=== PATIENT | male | born 1985 | race American Indian/Alaskan Native ===

== ENCOUNTER 2018-07-10 12:32 | Emergency (ER) | payer OTHER ==
[2018-07-10 13:11] VITALS: BP 119/59
--- NOTE | 2018-07-10 13:14 | Emergency Department Report ---
Blank Doc - Documentation Documentation: 33 y o male hx of schizophrenia presents to Ed for a haldol shot stating he is a day late takes no other meds denies SI/HI/AH/VH
--- NOTE | 2018-07-10 14:19 | Emergency Department Report ---
ED General Adult HPI - General Chief complaint: Medical Clearance Stated complaint: PSYCH MEDICATION Time Seen by Provider: 07/10/18 13:06 Source: patient, RN notes reviewed Mode of arrival: Ambulatory Limitations: No Limitations - History of Present Illness Initial comments: This is a 33-year-old gentleman. The patient is not known to this provider pr eviously. The patient reportedly has a history of psychiatric disease, and reportedly was receiving haloperidol maintenance injections in another hospital, in [place]. His last injection was approximately 30-31 days ago. The patient cannot recall which formulation of haloperidol he was receiving. He cannot recall which dose he was receiving. He presents to the emergency room today with complaints of request for routine haloperidol administration. He denies headache, neck pain, chest pain, abdominal pain, shortness of breath, urinary symptoms. He denies homicidality and suicidality. He has no other complaints. -: Sudden Improves with: none Worsens with: none Associated Symptoms: denies other symptoms - Related Data Allergies Allergy/AdvReac Type Severity Reaction Status Date / Time No Known Allergies Allergy Unverified 07/10/18 12:42 ED Review of Systems ROS: Stated complaint: PSYCH MEDICATION Other details as noted in HPI Constitutional: denies: fever Eyes: denies: eye discharge ENT: denies: epistaxis Respiratory: denies: cough Cardiovascular: denies: chest pain Gastrointestinal: denies: abdominal pain Musculoskeletal: denies: back pain Neurological: denies: headache Psychiatric: denies: auditory hallucinations, visual hallucinations, homicidal thoughts, suicidal thoughts ED Past Medical Hx - Past Medical History Hx Psychiatric Treatment: Yes (schizophrenia) - Surgical History Past Surgical History?: No - Social History Smoking Status: Never Smoker Substance Use Type: None ED Physical Exam - General Limitations: No Limitations General appearance: alert, in no apparent distress - Head Head exam: Present: atraumatic, normocephalic - Eye Eye exam: Present: normal appearance, EOMI. Absent: nystagmus - ENT ENT exam: Present: normal exam, normal orophraynx, mucous membranes moist, normal external ear exam - Neck Neck exam: Present: normal inspection, full ROM. Absent: tenderness, meningismus - Respiratory Respiratory exam: Present: normal lung sounds bilaterally. Absent: respiratory distress - Cardiovascular Cardiovascular Exam: Present: regular rate, normal rhythm, normal heart sounds. Absent: bradycardia, tachycardia, irregular rhythm, systolic murmur, diastolic murmur, rubs, gallop - GI/Abdominal GI/Abdominal exam: Present: soft. Absent: distended, tenderness, guarding, rebound, rigid, pulsatile mass - Rectal Rectal exam: Present: deferred - Extremities Exam Extremities exam: Present: normal inspection, full ROM, other (2+ pulses noted in the bilateral upper extremities. Moving 4 extremities spontaneously without difficulty.) - Back Exam Back exam: Present: normal inspection, full ROM. Absent: tenderness, CVA tenderness (R), CVA tenderness (L), vertebral tenderness - Neurological Exam Neurological exam: Present: alert, oriented X3, normal gait, other (Extraocular movements intact. Tongue midline. No facial droop. Facial sensation intact to light touch in the V1, V2, V3 distribution bilaterally. 5 and 5 strength in 4 extremities.. Sensation is intact to light touch in 4 extremities.). Absent: motor sensory deficit - Psychiatric Psychiatric exam: Absent: homicidal ideation, suicidal ideation - Skin Skin exam: Present: warm, dry, intact, normal color. Absent: rash ED Course Vital Signs 07/10/18 13:06 Temperature 97.9 F Pulse Rate 67 Respiratory 18 Rate Blood Pressure 119/59 O2 Sat by Pulse 99 Oximetry ED Medical Decision Making - Lab Data Vital Signs 07/10/18 13:06 Temperature 97.9 F Pulse Rate 67 Respiratory 18 Rate Blood Pressure 119/59 O2 Sat by Pulse 99 Oximetry - Medical Decision Making Differential diagnosis, including not limited to: General medical evaluation, general checkup Request for routine outpatient haloperidol administration Assessment and plan: 33-year-old gentleman with request for haloperidol injection. He does not know what formulation he takes. He does not know what dose he takes. He is not homicidal or suicidal. He exhibits decision-making capacity. He has not endorsed any acute psychiatric complaints at this time. He does not meet 1013 criteria. He has endorsed no medical complaints. Explained to the patient that without corroborating medical records, and knowledge of underlying dose and formulation, we will not be able to administer his medication. However, the patient was given a list of referrals to outpatient resources, for outpatient primary care, and psychiatry, for which to follow-up. Critical care attestation.: If time is entered above; I have spent that time in minutes in the direct care of this critically ill patient, excluding procedure time. ED Disposition Clinical Impression: General medical exam Disposition: TO HOME OR SELFCARE Is pt being admited?: No Does the pt Need Aspirin: No Condition: Stable Additional Instructions: The patient may follow up with any of the listed outpatient psychiatric facilities, or at the local mental health department, or with an outpatient psychiatrist for further care. The patient should return to the emergency room right away with new, worsening or different symptoms, or symptoms not present on the initial ER evaluation. [facility] [address] [facility] [facility] in [place], [place] Address: [address], [place] [address] Hours: Open 24 hours Suggest an edit [facility] [address] [facility] in the [place], [place] Address: [address] [place] [id number] Hours: Open [address] [facility] 2.[address] [facility] in [place], [place] Address: [address] [facility], [place] [address] Hours: Open 24 hours Referrals: [facility] [Provider Group] - 3-5 Days [facility] [Outside] - 3-5 Days [facility] [Outside] - 3-5 Days
== END 2018-07-10 15:04 | disposition home or self-care (01) ==
LOC: ED 12:32
DX: Z00.8 Encounter for other general examination (principal)
CPT/HCPCS: 99281

== ENCOUNTER 2018-07-23 16:41 | Emergency (ER) | payer SELFPAY ==
--- NOTE | 2018-07-23 17:10 | Event Note ---
ED Screening Note ED Screening Note: schizo rx haldol-- once per month KT William POS SI no plan no HI previous attempt no drugs no etoh cig no thc This initial assessment/diagnostic orders/clinical plan/treatment(s) is/are subject to change based on patients health status, clinical progression and re- assessment by fellow clinical providers in the ED. Further treatment and workup at subsequent clinical providers discretion. Patient/guardian urged not to elope from the ED as their condition may be serious if not clinically assessed and managed. Initial orders include: medical clearance ORIANA mart
[2018-07-23 18:39] LABS: Basophils # (Auto) 0.1 K/mm3 (0.0-0.1); Basophils % (Auto) 1.5 % (0.0-1.8); Eosinophils # (Auto) 0.1 K/mm3 (0.0-0.4); Eosinophils % (Auto) 1.6 % (0.0-4.3); Hematocrit 40.5 % (35.5-45.6); Hemoglobin 14.2 gm/dl (11.8-15.2); Lymphocytes # (Auto) 1.9 K/mm3 (1.2-5.4); Lymphocytes % (Auto) 44.8 % (13.4-35.0); Mean Corpuscular HGB Conc 35 % (32-34); Mean Corpuscular Volume 90 fl (84-94); Monocytes # (Auto) 0.3 K/mm3 (0.0-0.8); Monocytes % (Auto) 8.1 % (0.0-7.3); Platelet Count 117 K/mm3 (140-440); Red Blood Count 4.53 M/mm3 (3.65-5.03); Red Cell Distribution Width 13.8 % (13.2-15.2)
[2018-07-23 19:01] LABS: Alanine Aminotransferase 11 units/L (7-56); Albumin 3.8 g/dL (3.9-5); BUN/Creatinine Ratio 5; Blood Urea Nitrogen 6 mg/dL (9-20); Calcium 8.7 mg/dL (8.4-10.2); Hemolysis Index 9
[2018-07-23 19:13] LABS: Bilirubin,Urine NEG (Negative); Blood,Urine NEG (Negative); Color,Urine Straw (Yellow); Protein,Urine <15 mg/dL mg/dL (Negative); Urobilinogen,Urine < 2.0 mg/dL (<2.0); WBC,Urine < 1.0 /HPF (0.0-6.0)
[2018-07-23 19:14] LABS: RBC,Urine < 1.0 /HPF (0.0-6.0)
--- NOTE | 2018-07-23 19:16 | Emergency Department Report ---
ED Psych HPI - General Chief Complaint: Psych Stated Complaint: SUICIDAL Time Seen by Provider: 07/23/18 17:06 Source: patient Mode of arrival: Ambulatory - History of Present Illness Initial Comments: Mr. Gutierrez is a 33-year-old male with history of schizophrenia and depress ion who presents with suicidal ideation. He has a plan to jump off a bridge. 10 years ago he had a previous suicide attempt. He attempted to hang himself at that time. He has been severely depressed since the passing of his grandmother 2 years ago. He states that he has a lot of situations on his mind. He lives with his girlfriend. Otherwise he has limited social support. He was recently evaluated at [facility] for mental health concerns. He currently takes Haldol. He is unable to recall the name of his psychiatrist. MD Complaint: suicidal ideation, feels depressed -: Gradual, year(s) (2) Associated Psychiatric Symptoms: depression, suicidal ideation History of same: Yes Quality: constant Improves With: none Worsens With: none Associated Symptoms: denies other symptoms Treatments Prior to Arrival: none If Self Harm: has plan - Related Data Allergies Allergy/AdvReac Type Severity Reaction Status Date / Time No Known Allergies Allergy Unverified 07/10/18 12:42 ED Review of Systems ROS: Stated complaint: SUICIDAL Other details as noted in HPI Comment: All other systems reviewed and negative Constitutional: denies: fever, malaise Respiratory: denies: cough Cardiovascular: denies: chest pain ED Past Medical Hx - Past Medical History Previous Medical History?: Yes Hx Hypertension: No Hx CVA: No Hx Heart Attack/AMI: No Hx Congestive Heart Failure: No Hx Diabetes: No Hx Deep Vein Thrombosis: No Hx Pulmonary Embolism: No Hx GERD: No Hx Liver Disease: No Hx Renal Disease: No Hx of Cancer: No Hx Sickle Cell Disease: No Hx Arthritis: No Hx Headaches / Migraines: No Hx Seizures: No Hx Kidney Stones: No Hx Psychiatric Treatment: Yes (schizophrenia) Hx Asthma: No Hx COPD: No Hx Tuberculosis: No Hx Dementia: No Hx HIV: No - Surgical History Past Surgical History?: No Hx Coronary Stent: No Hx Open Heart Surgery: No Hx Pacemaker: No Hx Internal Defibrillator: No Hx Cholecystectomy: No Hx Appendectomy: No Hx Breast Surgery: No - Social History Smoking Status: Never Smoker Substance Use Type: None ED Physical Exam - General Limitations: No Limitations General appearance: alert, in no apparent distress - Head Head exam: Present: atraumatic, normocephalic - Eye Eye exam: Present: normal appearance - ENT ENT exam: Present: mucous membranes moist - Neck Neck exam: Present: normal inspection, full ROM - Respiratory Respiratory exam: Present: normal lung sounds bilaterally. Absent: respiratory distress, wheezes, rales, rhonchi - Cardiovascular Cardiovascular Exam: Present: regular rate, normal rhythm, normal heart sounds. Absent: bradycardia, tachycardia, systolic murmur, diastolic murmur, rubs, gallop - GI/Abdominal GI/Abdominal exam: Present: soft, normal bowel sounds. Absent: distended, tenderness, guarding, rebound - Rectal Rectal exam: Present: deferred - Extremities Exam Extremities exam: Present: normal inspection - Back Exam Back exam: Present: normal inspection - Neurological Exam Neurological exam: Present: alert, oriented X3 - Psychiatric Psychiatric exam: Present: normal affect, normal mood, suicidal ideation - Skin Skin exam: Present: warm, dry, intact, normal color. Absent: rash ED Course Vital Signs 07/23/18 16:44 Temperature 98.1 F Pulse Rate 90 Respiratory 18 Rate Blood Pressure 116/61 Blood Pressure 116/61 [Right] O2 Sat by Pulse 98 Oximetry ED Medical Decision Making - Lab Data Result diagrams: 07/23/18 18:26 07/23/18 18:26 Laboratory Results - last 24 hr 07/23/18 07/23/18 07/23/18 18:26 18:26 18:26 WBC 4.2 L RBC 4.53 Hgb 14.2 Hct 40.5 MCV 90 MCH 31 MCHC 35 H RDW 13.8 Plt Count 117 L Lymph % (Auto) 44.8 H [place] % (Auto) 8.1 H Eos % (Auto) 1.6 Baso % (Auto) 1.5 Lymph # 1.9 [place] # 0.3 Eos # 0.1 Baso # 0.1 Seg Neutrophils % 44.0 Seg Neutrophils # 1.8 Sodium 138 Potassium 3.2 L Chloride 98.9 Carbon Dioxide 25 Anion Gap 17 BUN 6 L Creatinine 1.2 Estimated GFR > 60 BUN/Creatinine Ratio 5 Glucose 87 Calcium 8.7 Total Bilirubin 0.60 AST 14 ALT 11 Alkaline Phosphatase 85 Total Protein 6.6 Albumin 3.8 L Albumin/Globulin Ratio 1.4 Urine Color Urine Turbidity Urine pH Ur Specific Garland Urine Protein Urine Glucose (UA) Urine Ketones Urine Blood Urine Nitrite Urine Bilirubin Urine Urobilinogen Ur Leukocyte Esterase Urine WBC (Auto) Urine RBC (Auto) U Epithel Cells (Auto) Plasma/Serum Alcohol < 0.01 07/23/18 19:03 WBC RBC Hgb Hct MCV MCH MCHC RDW Plt Count Lymph % (Auto) Camb[place] % (Auto) Eos % (Auto) Baso % (Auto) Lymph # Cambria # Eos # Baso # Seg Neutrophils % Seg Neutrophils # Sodium Potassium Chloride Carbon Dioxide Anion Gap BUN Creatinine Estimated GFR BUN/Creatinine Ratio Glucose Calcium Total Bilirubin AST ALT Alkaline Phosphatase Total Protein Albumin Albumin/Globulin Ratio Urine Color Straw Urine Turbidity Clear Urine pH 7.0 Ur Specific Garland 1.004 Urine Protein <15 mg/dl Urine Glucose (UA) Neg Urine Ketones Neg Urine Blood Neg Urine Nitrite Neg Urine Bilirubin Neg Urine Urobilinogen < 2.0 Ur Leukocyte Esterase Neg Urine WBC (Auto) < 1.0 Urine RBC (Auto) < 1.0 U Epithel Cells (Auto) < 1.0 Plasma/Serum Alcohol - Medical Decision Making Dr. Gutierrez presents with depression suicidal ideation and plan to jump off bridge. He has previous history of suicide attempt. I have placed Mr. Knapp on 1013 involuntary hold for suicidal ideation with plan. I feel the patient is at high risk for self-harm considering previous history and poor social support. Awaiting evaluation by mental health brick shader. Awaiting further treatment and possible placement by psychiatric team. At this time Mr. Knapp is medically clear for psychiatric care. He has been cooperative and calm. Critical care attestation.: If time is entered above; I have spent that time in minutes in the direct care of this critically ill patient, excluding procedure time. ED Disposition Clinical Impression: Suicidal ideation, Acute depression, Schizophrenia Disposition: [id number] ANOTHER TYPE HLTHCARE Is pt being admited?: No Does the pt Need Aspirin: No Condition: Stable
[2018-07-23 19:19] LABS: Amphetamine Screen,Urine PRESUMPTIVE NEGATIVE; Benzodiazepines Screen,Urine PRESUMPTIVE NEGATIVE; Cocaine Screen,Urine PRESUMPTIVE NEGATIVE; Methadone Screen,Urine PRESUMPTIVE NEGATIVE; Opiate Screen,Urine PRESUMPTIVE NEGATIVE
[2018-07-23 19:32] LABS: Cannabinoid Screen,Urine PRESUMPTIVE POSITIVE
[2018-07-23] MEDS: K-DUR PO SCH (20:30)
[2018-07-24] MEDS: K-DUR PO SCH (14:25)
--- NOTE | 2018-07-24 20:15 | Consultation ---
History of Present Illness - Reason for Consult Consult date: 07/24/18 Reason for consult: psychiatric evaluation - Chief Complaint Chief complaint: "I don't want to hurt myself" - History of Present Psychiatric Illness Mr. Gutierrez is a 33-year-old male with history of schizophrenia and depression who presented with suicidal ideation. He reported to the ER physician a plan to jump off a bridge. He reports 10 years ago he had a previous suicide attempt. He attempted to hang himself at that time. He has been severely depressed since the passing of his grandmother 2 years ago. He states that he has a lot of situations on his mind. He lives with his girlfriend who he recently found on a dating website. He found out she cannot have children and is 49 years old. He wants children and also has goals of having a car, job, and a home. Otherwise he has limited social support. He was recently evaluated at [facility] for mental health concerns and continued on haldol dec, unknown dose, due on 08/09/2018. He wants a med change, with particular attention to depressive symptoms. He would like to address these changes with an outpatient psychiatrist. He is interested in a community mental health program near [facility], where he can have help with housing, job placement, therapy, and meds. Medications and Allergies Allergies Allergy/AdvReac Type Severity Reaction Status Date / Time No Known Allergies Allergy Unverified 07/10/18 12:42 Home Medications Medication Instructions Recorded Confirmed Last Taken Type No Known Home Medications [No 07/24/18 07/24/18 Unknown History Reported Home Medications] Active Meds: Active Medications Potassium Chloride (K-Dur) 40 meq PO DAILY DILAN Last Admin: 07/24/18 14:25 Dose: 40 meq Documented by: Past psychiatric history - Past Medical History Past Medical History: No medical history - past Psychiatric treatment and history Psych: Schizophrenia psychiatric treatment history: SA years ago and hospitalization years ago psych care in [place] for years - Social History Social history: other (staying with girlfriend. He says she told him he can stay if they break up) Mental Status Exam - Vital signs Last Vital Signs Temp 97.7 F 07/24/18 13:04 Pulse 89 07/24/18 13:04 Resp 20 07/24/18 13:04 BP 109/62 07/24/18 13:04 Pulse Ox 98 07/24/18 13:04 - Exam Orientation: time, place, person Affect: depressed Mood: congruent with affect Thought content: other (denies SI/HI) Thought Process: Loose Associations Perceptions: none Speech: normal rate and pattern Concentration: focused Motor activity: normal Level of consciousness: alert Memory: Intact Sleep Symptoms: Nightmares Appetite: decreased Interaction: cooperative Mini mental status exam(if necessary): 24-30 Results Result Diagrams: 07/23/18 18:26 07/23/18 18:26 All other labs normal. Assessment and Plan Assessment and plan: Impression: schizophrenia Symptoms are consistent with comorbid MDD vs negative symptoms of schizophrenia Recent change in living situation. Limited social support Psychiatric care if far from living situation Stabilized on haldol dec for schizophrenia, due 08/09 Recommendations: continue 1013 Monitor for SI/distressing depressive symptoms add benadryl 50mg hs for sleep/eps prevention dispo: inpatient psychiatric care but will evaluate for inpatient criteria daily staffed with Dr. Luciano
[2018-07-24] MEDS: BENADRYL PO SCH (22:05)
[2018-07-25] MEDS: K-DUR PO SCH (10:30)
[2018-07-25] MEDS: BENADRYL PO SCH (22:01)
[2018-07-26] MEDS: K-DUR PO SCH (11:31)
[2018-07-26 14:13] VITALS: BP 106/70
--- NOTE | 2018-07-26 14:32 | Progress Note ---
Subjective - Reason for Consult Consult date: 07/26/18 Reason for consult: Psychiatric Follow-up Evaluation - Chief Complaint Chief complaint: "I'm feeling good. " Mr. Gutierrez is a 33-year-old male with history of schizophrenia and depression who presented with suicidal ideation. He reported to the ER physician a plan to jump off a bridge. Today the patient is calm and cooperative during the assessment. Being here I've learned to have more patien ce. My coping skills are: "talking to love ones, staying busy, going to yazidi, and participating in mental health programs. " Patient denies SI/HI's, A/VH's, and delusions. Reports medication compliance. Patient receives Haldol Dec monthly injection at [facility]. Per patient his next monthly injection is due August 15, 2018. Patient denies SI/HI's, A/VH's, and delusions. Provider called anna ([phone])Edita at 4:05 PM. Girlfriend states that patient does not appear to be a danger to self/others. Also, girlfriend states that patient has no access to weapons and is safe to return home. Provider informed patient's girlfriend that if he becomes a danger to self/others or psychosis is evident she is to call 911, report to ER, or call the crisis line. Mental Status Exam - Vital signs Last Vital Signs Temp 98.4 F 07/26/18 14:11 Pulse 90 07/26/18 14:11 Resp 18 07/26/18 14:11 BP 106/70 07/26/18 14:11 Pulse Ox 99 07/26/18 14:11 - Exam Narrative exam: Orientation: time, place, person Affect: less anxious and depressed Mood: " I'm good" Thought content: organized (denies SI/HI's, A/VH's, and delusions) Thought Process: Loose Associations Perceptions: none Speech: normal rate and pattern Concentration: focused Motor activity: normal Level of consciousness: alert Memory: Intact Sleep Symptoms: 6-8 hours Appetite: appropriate Interaction: cooperative Assessment and Plan Impression: PPHx schizophrenia. MDD. Today the patient is calm and cooperative during the assessment. At the time of discharge patient is in no imminent danger to self/others. Patient denies SI/HI's, A/VH's, and delusions. Collateral gained. Provider spoke with patient's girlfriend. Per girlfriend patient is able to safely return home. Discussed medications/coping skills in regards to mood/psychosis. Patient verbalizes full understanding. Recommendations: 1. Will rescind 1013. Patient no longer meets criteria. 2. Patient will follow-up at [facility] for Haldol Dec injection on 08/09/18. Disposition: Will rescind 1013. Will follow up at [facility] for monthly injection. Also patient can follow-up at the [facility] for outpatient services. Staffed with Dr. Luciano.
--- NOTE | 2018-07-26 16:51 | Event Note ---
Date: 07/26/18 Patient is 33 years old male admitted to the emergency room for suicidal ideation. Patient has been evaluated by psychiatric team and recommended outpatient follow-up. I personally examined the patient before discharge. Patient is alert, oriented 3 in no acute distress. Patient denied any suicidal or homicidal ideation. Patient also denied any visual or digital hallucination. Patient stated that he is looking forward to his life and and radiated to follow up with his psychiatric as an outpatient. Patient discharged in a stable clinical and psychiatric condition.
== END 2018-07-26 17:45 | disposition other institution (70) ==
LOC: EEVIPCON 16:41 → ED 16:41
DX: F32.9 Major depressive disorder, single episode, unspecified (principal); F20.9 Schizophrenia, unspecified
CPT/HCPCS: 36415; 80053; 80307; 81001; 84443; 85025; 99284; G0480; 80320